=== PATIENT | female | born 1965 | race Caucasian/White ===

== ENCOUNTER → 2020-11-28 13:25 | Outpatient (CLI) | payer OTHER, MEDICAID, SELFPAY ==
[2020-11-28 13:55] LABS: Add Manual Diff / Slide Review NO; Basophils Absolute Auto 100 /uL (0-100); Eosinophils Absolute Auto 100 /uL (0-450); Eosinophils Percent Auto 2.4 % (2-4); Hematocrit 42.1 % (36-46); Hemoglobin 13.9 g/dL (12.0-16.0); Lymphocytes Absolute Auto 1900 /uL (1100-4500); Lymphocytes Percent Auto 31.7 % (25-40); Mean Corpuscular HGB Conc 33.1 % (30-36); Mean Corpuscular Hemoglobin 28.8 PG (26-34); Mean Corpuscular Volume 87.2 fL (80-100); Monocytes Absolute Auto 400 /uL (0-900); Monocytes Percent Auto 5.8 % (3-14); Neutrophils Absolute Auto 3600 /uL (1500-7000); Neutrophils Percent Auto 59.1 % (50-75); Platelet Count 228 X10^3/uL (150-400); Red Blood Cell Count 4.83 X10^6/uL (4.0-5.2); Red Cell Distribution Width 14.9 % (11.6-14.8); White Blood Cell Count 6.1 X10^3/uL (4.5-11.0)
[2020-11-28 14:29] LABS: Alanine Aminotransferase 21 IU/L (<35); Albumin 4.3 g/dL (3.5-5.0); Albumin Globulin Ratio 1.6 (1.0-2.8); Alkaline Phosphatase 58 U/L (38-126); Aspartate Aminotransferase 26 IU/L (14-36); BUN Creatinine Ratio 15.5 (6-22); Bilirubin Total 0.9 mg/dL (0.2-1.3); Blood Urea Nitrogen 13 mg/dL (7-17); Calcium 9.5 mg/dL (8.4-10.2); Carbon Dioxide 24 mmol/L (22-32); Chloride 107 mmol/L (98-107); Estimated Glomerular Filt Rate > 60.0 mL/min (>60); Globulin 2.7 g/dL (1.7-4.1); Glucose 90 mg/dL (70-100); HEMOLYSIS < 15 (0-50); Sodium 139 mmol/L (137-145)
[2020-11-28 14:58] LABS: TSH w/ Reflex to FT4 3.11 uIU/mL (0.47-4.68)
== END ==
PROVIDERS: PCP Registered Nurse; Referring Provider Registered Nurse; Visit Provider Registered Nurse
DX: Z00.00 Encounter for general adult medical examination without abnormal findings (principal); D64.9 Anemia, unspecified
CPT/HCPCS: 36415; 80053; 84443; 85025

== ENCOUNTER → 2020-12-01 10:39 | Outpatient (CLI) | payer OTHER, MEDICAID, SELFPAY ==
[2020-12-04 12:22] LABS: Fecal Immunochemical Test Negative (Negative)
== END ==
PROVIDERS: PCP Registered Nurse; Referring Provider Registered Nurse; Visit Provider Registered Nurse
DX: Z12.11 Encounter for screening for malignant neoplasm of colon (principal)
CPT/HCPCS: 82274

== ENCOUNTER → 2021-06-25 16:14 | Outpatient (CLI) | payer OTHER, MEDICAID, SELFPAY ==
[2021-06-25 19:19] LABS: COVID19 -Nasal RAPID Negative (Negative)
== END ==
PROVIDERS: Obstetrics & Gynecology; PCP Registered Nurse; Visit Provider Family Medicine Sleep Medicine
DX: Z01.812 Encounter for preprocedural laboratory examination (principal); Z20.822 Contact with and (suspected) exposure to COVID-19
CPT/HCPCS: 87635; C9803

== ENCOUNTER 2021-06-26 12:11 | Day surgery (SDC) | payer OTHER, MEDICAID, SELFPAY ==
[2021-06-22 08:11] VITALS: BMI 27.1
[2021-06-26] VITALS (15 sets, daily range): BP systolic 93–138; BP diastolic 55–92; PULSE 52–89; RESP 12–20; TEMP 35.9–37.1; O2SAT 96–100; BMI 27.1
--- NOTE | 2021-06-26 | PATH_ITS ---
[facility] Accession Number: [id number] . 01 Material submitted: . uterus - CERVIX AND UTERUS . 02 Diagnosis: A. Uterus and Cervix, Hysterectomy: Cervix with parakeratosis consistent with features of prolapse-type changes, benign Nabothian cysts, inflammation, squamous metaplasia, and reactive changes. Weakly proliferative endometrium. Myometrium within normal limits. No evidence of endometrioid intraepithelial neoplasia, dysplasia, or malignancy. [facility] 07/02/2021 1623 Local . 02 Electronically signed: . Portia Delong MD, Pathologist NPI- [id number] . 01 Gross description: . The specimen is received in formalin, labeled with the patient's name and cervix and uterus, is composed of a hysterectomy specimen which is received in two fragments. One fragment is composed of the uterus, and the second fragment is composed of cervix and attached tissue. Both fragments together weigh 229 grams. The fragment of uterus measures 6.0 cm from superior to inferior, 7.0 cm from cornu to cornu, and 5.5 cm anterior to posterior. The fragment with the cervix measures 8.0 cm from the cervix to the proximal end. The cervix measures 4.0 x 4.5 cm. The ectocervix is esipnosa-white, glistening, and the mucosal surface is uneven. The cervical os measures 1.0 x 0.5 cm. Bivalving reveals an endocervical canal which measures 1.5 x 0.5 cm. It is espinosa-white and smooth. Multiple mucous-filled cysts are identified ranging from 0.4 to 0.9 cm. The supracervical possible lower uterine segment cavity measures 2.0 x 0.2 cm. It is espinosa-pink and smooth. Discrete lesions are not identified. The fragment which shows the uterus has a espinosa-brown smooth serosal surface. Fallopian tubes are not identified. Bivalving reveals a 2.0 x 0.5 cm espinosa-pink endometrial cavity. Discrete lesions are not identified. The myometrium shows a espinosa-white trabeculated appearance with a 2.0 cm wall thickness. Sectioning reveals no discrete lesions. Ems Driver sections are submitted as follows: . A1-A2 - Cervix. A3 - Possible lower uterine segment. A4-A6 - Endomyometrium. ([id number]) /MRV 06/28/2021 1344 Local . 02 Pathologist provided ICD-10: N81.4 . 02 CPT . 392424 Specimen Comment: A courtesy copy of this report has been sent to [phone] Performed at: 01 [facility] [address] [place] [address] [id number] MD Rory Evans MD Phone: [phone] Performed at: 02 [facility] [id number] [place] [address] [id number] MD Melida Williamson MD Phone: [phone]
--- NOTE | 2021-06-26 11:26 | PM.GYNHP.1 ---
History of Present Illness History of Present Illness Narrative: Melida Anderson is a 56 year old female admitted for total vaginal hysterectomy, anterior and posterior repair, sacrospinous ligament fixation for partial uterovaginal prolapse [facility] Medical History (Updated 06/26/21 @ 11:27 by Mandie Khan MD) Adult general medical exam Amniotic fluid embolism (~12/22/98) Anemia, unspecified Chicken pox (~1992) History of Mohs micrographic surgery for skin cancer (02/12/21) Malaria (~1984) Phlebitis Preoperative exam for gynecologic surgery Prolapsed uterus Screening for breast cancer Screening for malignant neoplasm of colon Surgical History (Updated 12/27/20 @ 13:41 by Leida Trammell) Anesthesia History of appendectomy (~1984) History of dilatation and curettage (~1998) History of tonsillectomy (~1974) History of varicose vein ligation (~2006) Family History (Updated 12/27/20 @ 13:45 by Leida Trammell) Mother Pancreatic cancer Grandfather No problems noted. Grandmother COPD (chronic obstructive pulmonary disease) Grandfather Cirrhosis Grandmother History of heart disease Social History household members: family Smoking Status: Never smoker Meds Home Medications and Allergies Home Medications Medication Instructions Recorded Confirmed Type OTC progestin cream TOPICAL DAILY 02/14/21 06/25/21 History Allergies Allergy/AdvReac Type Severity Reaction Status Date / Time No Known Drug Allergies Allergy Verified 06/26/21 12:18 Exam Narrative Exam Narrative: Chief Complaint: Preoperative exam Preoperative diagnosis:? Uterovaginal prolapse Planned procedure:? Total vaginal hysterectomy with anterior and posterior repair and sacrospinous ligament fixation History of present illness:?Patient is a 56-year-old para 3 who has been having increasing symptoms from prolapse.? She has to shift on the toilet to urinate sometimes.? She does not describe pain but just discomfort with the feeling that she has a bulge coming out of her vagina daily now.? She has no change in bowel movements.? She is not sexually active.? She has no hot flashes or night sweats.? Patient was found on physical exam to have uterovaginal prolapse with the cervix coming out of the hymen, urethra well supported, cystocele and small rectocele.? Patient was given all options for treatment and decided to proceed with hysterectomy with anterior and posterior repair with sacrospinous ligament fixation. On physical exam:? HEENT exam within normal limits.? Lungs are clear to auscultation percussion.? Heart is regular rate and rhythm no S3-S4 murmurs.? The patient's abdomen is soft, nontender with no palpable organomegaly.? External genitalia appear normal.?Speculum exam reveals? a enlarged cervix with the anterior lip significantly prominent verses the posterior lip of the cervix.? There also large Nambothian cysts.? There is significant vaginal wall prolapse.? The urethra it appears to be well supported. The uterus is anteverted, mobile, nontender.? The uterus itself does not palpate significantly enlarged.? No adnexal masses or tenderness.? With Valsalva the cervix prolapses out of the hymen.? Rectal exam reveals a small rectocele. Consent form was reviewed with the patient.? Risk of damage to bladder, bowel, ureters that could require additional surgery to repair.? Small risk of bleeding.? Patient is okay with blood transfusion if necessary to save her life.? 10% risk of infection that might require additional antibiotics after procedure.? 5% risk of scar tissue that could cause as pain that might be long-term.? Reaction to medication or anesthesia.? Consent form signed and questions answered. Patient is aware that she will have vaginal packing and a Killian in after the end of the case.? She will stay overnight and then have the catheter and packing removed.? She is aware of a small chance of needing to have a Killian replaced or be taught self catheterization if she is unable to urinate after the procedure.? The catheter would stay in for 2 days after and she would again be of value to make sure she could urinate.? Patient is aware she should not lift over 20 lb or put anything in her vagina for 6 weeks. Assessment & Plan Assessment and plan (1) Preoperative exam for gynecologic surgery: Status: Acute (2) Prolapsed uterus: Status: Acute Assessment & Plan narrative: Patient with partial uterovaginal prolapse for anterior and posterior repair with sacrospinous ligament fixation COVID-19 COVID-19 status: Negative Result date/Date tested (Pos, Neg/Pending): 06/25/21 Time Spent With Patient Time with patient: less than 30 minutes Critical Care time: I spent a total of [] minutes of critical care time on this patient's care today; this time is exclusive of procedural time.
--- NOTE | 2021-06-26 13:42 | PM.PREOP ---
Pre-operative Note COVID-19 COVID-19 status: Negative Result date/Date tested (Pos, Neg/Pending): 06/25/21 Criteria for continued procedure: Expected advancement of disease process Interval Note History & Physical reviewed/Exam performed by Physician: Yes Changes to H&P: No
[2021-06-26] MEDS: LACTATED RINGERS 1,000 ML 42 ML IV (14:00)
[2021-06-26] MEDS: CEFAZOLIN 2 GM/20 ML SYRINGE IV (14:52)
--- NOTE | 2021-06-26 15:06 | SUR.OPER ---
Lithotomy on padded OR bed, head on pillow, arms secured on padded arm boards at <90 degrees abduction. Legs secured in padded yellow fins stirrups.
[2021-06-26] MEDS: LACTATED RINGERS 1,000 ML 100 ML IV ×2 (15:19→18:49)
[2021-06-26] MEDS: BUPIVACAINE 0.5% (PF) 30 ML, EPINEPHrine 0.15 MG INJ (15:32)
--- NOTE | 2021-06-26 17:09 | PM.OP.1 ---
Operative Date/Time/Diagnoses Date of procedure: 06/26/21 Time of procedure: 17:09 Pre-op diagnosis: Symptomatic uterovaginal prolapse Post-op diagnosis: same Procedure & Clinicians Procedure: Total vaginal hysterectomy with anterior and posterior repair and bilateral sacrospinous ligament fixation with perineoplasty Same procedure as scheduled: Yes Indications: Symptomatic uterovaginal prolapse Surgeon: Mandie Khan Certifed Refrigeration Operator: Mirna rCane Click Yes if Unassisted: No Anesthesia Type: General Operative Notes Findings: Enlarged uterus with normal appearing bilateral ovaries and tubes. First-degree cystocele, second-degree rectocele with gaping introitus Closure Type: primary Specimen(s): other (Uterus) Applied: catheter (Killian) and other (Vaginal packing) Estimated Blood Loss (mL): 400 Blood products transfused: none Procedure in detail: Patient was brought to the operating room where she was placed in yellowfin stirrups and prepped and draped in the usual sterile fashion. A check system was reviewed prior to the beginning of the case. Pulsatile stockings were in place and functional throughout the case. Warming was in place. 2 g of Ancef were in prior to beginning of the case. A Killian catheter was placed. 0.5% Marcaine with epinephrine was injected around the cervix. A single-tooth tenaculum was placed on the posterior lip of the cervix and a colpotomy incision was made. The uterosacral ligaments were clamped, cut, and ligated with 0 Vicryl suture which was used throughout the rest the case unless otherwise indicated. A scalpel was used to circumscribe the cervix and the bladder pushed superiorly. The bladder pillars were clamped cut and ligated. Keeping the bladder pushed superiorly sequential bites were taken of the cardinal and broad ligaments with the LigaSure . Anterior colpotomy incision was made and the bladder held away from the uterus. The rest of the attachments of the uterus including the broad ligament and the utero-ovarian ligaments were clamped and ligated. The uterus was removed intact. Bleeding was controlled with [id number] 0 Vicryl suture. Adequate hemostasis was noted. The perineum was closed with a pursestring suture of 0 Vicryl suture. Dilute solution of 1% lidocaine with epinephrine was injected over this cystocele. An incision was made over the cystocele and the incision dissected laterally. Plicating sutures were made over the cystocele. A small amount of the vaginal excessive tissue was removed with scissors. The incision was closed with 2-0 Vicryl suture. The vaginal cuff was closed with [id number] sutures of 0 Vicryl suture. Next a wedge shaped tissue was taken out of the posterior vaginal opening. The area over the rectocele was injected with a dilute solution of 1% lidocaine with epinephrine. An incision was made over the rectocele and enterocele with the scalpel. The dissection was undertaken laterally. Prolene suture with the Capio passer was placed through the uterosacral ligament on the right side and sutured to the underside of the vaginal cuff. Same procedure was performed on the left side. A finger in the rectum did not reveal any suture in the rectum. 0 Vicryl suture was used to plicate over the rectocele. A finger was placed in the rectum to be sure there were no sutures placed through the rectal mucosa. The uterosacral sutures were tightened down and the vaginal incision was closed with 2-0 Vicryl suture. The perineal body was built up with interrupted 0 Vicryl sutures. The skin was closed with the 2-0 Vicryl suture. Vaginal packing was placed in the vagina and the Killian left in place. Counts of instruments and sponges were correct. The patient went to recovery room in good condition. Complications: none Post-operative Condition: stable Disposition: Acute Care
--- NOTE | 2021-06-26 18:11 | SUR.PHASEI ---
Report called to NAVDEEP RN. Opportunity for questions give. Return phone number at time of report [phone]. Pt being transferred to Rm 216. Pt updated on plan of care and is agreeable.
[2021-06-26] MEDS: KETOROLAC 30 MG/ML VIAL IV (18:48)
[2021-06-26] MEDS: ONDANSETRON 4 MG/2 ML INJ IV (20:22)
[2021-06-26] MEDS: DOCUSATE 100 MG CAPSULE 200 MG PO (21:17)
[2021-06-27] MEDS: KETOROLAC 30 MG/ML VIAL IV ×3 (00:13→12:47)
[2021-06-27] MEDS: ONDANSETRON 4 MG/2 ML INJ IV ×2 (01:58→08:33)
[2021-06-27 04:00] VITALS: BP 125/70; PULSE 89; RESP 14; TEMP 36.7; O2SAT 96
[2021-06-27] MEDS: LACTATED RINGERS 1,000 ML 100 ML IV (05:14)
[2021-06-27 06:00] LABS: Add Manual Diff / Slide Review NO; Basophils Absolute Auto 0 /uL (0-100); Basophils Percent Auto 0.1 % (0-2); Eosinophils Absolute Auto 0 /uL (0-450); Hematocrit 30.7 % (36-46); Hemoglobin 9.9 g/dL (12.0-16.0); Lymphocytes Absolute Auto 1000 /uL (1100-4500); Mean Corpuscular HGB Conc 32.3 % (30-36); Mean Corpuscular Hemoglobin 24.9 PG (26-34); Monocytes Absolute Auto 500 /uL (0-900); Monocytes Percent Auto 4.3 % (3-14); Neutrophils Absolute Auto 10500 /uL (1500-7000); Neutrophils Percent Auto 87.6 % (50-75); Platelet Count 200 X10^3/uL (150-400); Red Blood Cell Count 3.99 X10^6/uL (4.0-5.2); Red Cell Distribution Width 15.6 % (11.6-14.8)
[2021-06-27] MEDS: METOCLOPRAMIDE 10 MG/2 ML INJ IV (06:46)
[2021-06-27] MEDS: OXYCODONE IR 5 MG TABLET PO (06:46)
--- NOTE | 2021-06-27 07:53 | PM.PN.1 ---
Subjective Subjective Date Patient Seen: 06/27/21 Time Patient Seen: 07:53 Interval history: Patient is to continue to have waves of nausea but pain is under control. Exam Vital Signs (past 8 hours): - 06/27/21 04:00 Temperature 98.1 F Pulse Rate 89 Respiratory Rate 14 Blood Pressure 125/70 Pulse Oximetry 96 Fraction of Inspired Oxygen 21 Oxygen Delivery Method Room Air Oxygen Flow Rate 0 Narrative Exam Narrative: Abdomen is soft, nontender. Killian catheter was removed. Vaginal packing was removed and was not saturated with blood. Extremities without edema and nontender Objective Labs Result Diagrams: 06/27/21 05:34 Labs: Laboratory Results - last 24 hr 06/27/21 05:34 WBC 12.0 H RBC 3.99 L Hgb 9.9 L Hct 30.7 L MCV 77.0 L MCH 24.9 L MCHC 32.3 RDW 15.6 H Plt Count 200 Neut % (Auto) 87.6 H Lymph % (Auto) 8.0 L [place] % (Auto) 4.3 Eos % (Auto) 0.0 L Baso % (Auto) 0.1 Neut # (Auto) 09621 H Lymph # (Auto) 1000 L [place] # (Auto) 500 Eos # (Auto) 0 Baso # (Auto) 0 PFSH Medical History (Updated 06/27/21 @ 07:54 by Mandie Khan MD) Adult general medical exam Amniotic fluid embolism (~12/22/98) Anemia, unspecified Chicken pox (~1992) History of Mohs micrographic surgery for skin cancer (02/12/21) Malaria (~1984) Phlebitis Prolapsed uterus Screening for breast cancer Screening for malignant neoplasm of colon Surgical History (Updated 06/26/21 @ 17:06 by Mandie Khan MD) Anesthesia History of appendectomy (~1984) History of dilatation and curettage (~1998) History of tonsillectomy (~1974) History of varicose vein ligation (~2006) Family History (Updated 12/27/20 @ 13:45 by Leida Trammell) Mother Pancreatic cancer Grandfather No problems noted. Grandmother COPD (chronic obstructive pulmonary disease) Grandfather Cirrhosis Grandmother History of heart disease Social History household members: family Smoking Status: Never smoker alcohol intake: current Assessment & Plan Assessment and plan (1) Status post vaginal hysterectomy: Status: Acute (2) H/O vaginal surgery: Problem details: Anterior and posterior repair with bilateral sacrospinous ligament fixation Status: Acute Assessment & Plan narrative: Killian catheter was removed. Will check for postvoid residual. Will discharge later today if tolerating regular diet and ambulatory. Time Spent With Patient Time with patient: less than 30 minutes Critical Care time: I spent a total of [] minutes of critical care time on this patient's care today; this time is exclusive of procedural time.
[2021-06-27 07:55] VITALS: O2SAT 98
[2021-06-27] MEDS: ACETAMINOPHEN 325 MG TABLET 650 MG PO (08:32)
[2021-06-27 09:12] VITALS: BP 122/73; PULSE 83; RESP 16; TEMP 37.4; O2SAT 97
[2021-06-27 12:00] VITALS: BP 128/76; PULSE 83; RESP 16; TEMP 37.3; O2SAT 100
--- NOTE | 2021-06-27 13:03 | PC.NURSE ---
Addendum entered by Emily Laughlin R.N. 06/27/21 16:01: Pt received discharge instructions w/understanding SL D/C'd intact. Pt escorted by staff via W/C to waiting vehicle. Stable post op course. Original Note: Pt A/O Lungs clear, SpO2 98% RS IVF of LR infusing into the LFA as per orders. Med w/ zofran and tylenol early in shift w/minimal relief. F/C D/C'd early in shift, voided QS Call light w/in reach, pt calls appropriately for needs.
--- NOTE | 2021-06-27 13:12 | PM.DS.1 ---
History of Present Illness History of Present Illness Date Patient Seen: 06/27/21 Time Patient Seen: 13:12 Chief complaint: *OPB* Narrative: Patient underwent a total vaginal hysterectomy with anterior and posterior repair and sacrospinous ligament fixation on 06/26/2021. Patient passed her bladder trial. She has had issues with nausea that are somewhat better at this time. Patient has a headache in the back of her head neck now. Discharge Providers Provider Discharge Date: 06/27/21 Primary care physician: BELINDA Paige Discharge provider: Mandie Khan MD Summary Status at Discharge Functional status at discharge: independent ambulation Overall status at discharge: patient is progressing back to baseline Time Spent with Patient Time spent: Less than 30 minutes Exam Vital Signs (past 8 hours): - 06/27/21 07:55 06/27/21 09:12 06/27/21 12:00 Temperature 99.4 F 99.1 F Pulse Rate 83 83 Respiratory Rate 16 16 Blood Pressure 122/73 128/76 Pulse Oximetry 98 97 100 Fraction of Inspired Oxygen 21 Oxygen Delivery Method Room Air Oxygen Flow Rate 0 Narrative Exam Narrative: Abdomen is soft, nontender. Minimal vaginal bleeding. Extremities without edema and nontender. Objective Labs Result Diagrams: 06/27/21 05:34 Labs: Laboratory Results - last 24 hr 06/27/21 05:34 WBC 12.0 H RBC 3.99 L Hgb 9.9 L Hct 30.7 L MCV 77.0 L MCH 24.9 L MCHC 32.3 RDW 15.6 H Plt Count 200 Neut % (Auto) 87.6 H Lymph % (Auto) 8.0 L [place] % (Auto) 4.3 Eos % (Auto) 0.0 L Baso % (Auto) 0.1 Neut # (Auto) 32350 H Lymph # (Auto) 1000 L [place] # (Auto) 500 Eos # (Auto) 0 Baso # (Auto) 0 PFSH Medical History (Updated 06/27/21 @ 07:54 by Mandie Khan MD) Adult general medical exam Amniotic fluid embolism (~12/22/98) Anemia, unspecified Chicken pox (~1992) History of Mohs micrographic surgery for skin cancer (02/12/21) Malaria (~1984) Phlebitis Prolapsed uterus Screening for breast cancer Screening for malignant neoplasm of colon Surgical History (Updated 06/26/21 @ 17:06 by Mandie Khan MD) Anesthesia History of appendectomy (~1984) History of dilatation and curettage (~1998) History of tonsillectomy (~1974) History of varicose vein ligation (~2006) Family History (Updated 12/27/20 @ 13:45 by Leida Trammell) Mother Pancreatic cancer Grandfather No problems noted. Grandmother COPD (chronic obstructive pulmonary disease) Grandfather Cirrhosis Grandmother History of heart disease Social History household members: family Smoking Status: Never smoker alcohol intake: current Discharge Assessment & Plan Assessment and Plan Assessment: Status post vaginal hysterectomy with anterior and posterior repair and sacrospinous ligament fixation for complaints uterovaginal prolapse. Patient passed her bladder trial this a.m.. We are waiting for confirmation that her nausea has improved enough for her to be discharged. Plan of Treatment: She will be discharged home to be followed up in 2 weeks. Routine precautions reviewed with the patient. Discharge Plan Discharge Plan Patient Disposition: Home Discharge orders & Medications Discharge Orders: Discharge (Order); Ordered 06/27/21 Ordered By: Mandie Khan Prescriptions: New oxycodone 5 mg Tablet 5 mg PO Q4HR PRN (Reason: Pain, Moderate (4-6)) Qty: 20 0RF ondansetron 4 mg tablet,disintegrating 4 mg PO Q6H PRN (Reason: nausea and vomiting) Qty: 10 2RF Discontinued OTC progestin cream topical DAILY 0RF Follow up/Referrals: Mandie Khan MD [Physician] - 2 Weeks Janae Asencio ARNP [Primary Care Provider] - Diet/Activity/Treatments Diet: Regular Activity: Nothing in vagina or lifting over 20 lb for 6 weeks Skin/Wound/Dressing Care Report to your healthcare provider any signs of infection, such as:: chills, fever and increased pain Visit Report/Discharge Packet Instructions: DI for Hysterectomy Stand Alone Forms: Surgery Discharge Discharge Data Primary Care Provider: Janae Asencio Attending Provider: Mandie Khan
== END 2021-06-27 16:00 | disposition home or self-care (01) ==
LOC: OR 12:12 → AC 12:13
PROVIDERS: PCP Registered Nurse; Referring Provider Specialist; Visit Provider Specialist
PROC: (CPT 58260; principal; 2021-06-26 13:30)
PROC: (CPT 58260; 2021-06-26 13:30)
DX: N81.2 Incomplete uterovaginal prolapse (principal); N88.8 Other specified noninflammatory disorders of cervix uteri
CPT/HCPCS: 58260; 57260; 36415; 85025; 94760; J0171; J0690; J1100; J1885; J2250; J2405; J2704; J2765; J3010

== ENCOUNTER → 2022-08-29 09:16 | Outpatient (CLI) | payer OTHER, MEDICAID, SELFPAY ==
[2021-06-26 12:18] VITALS: BMI 27.1
[2022-08-29 12:20] LABS: Appearance Urine UA CLEAR; Bilirubin Urine UA NEGATIVE (NEGATIVE); Color Urine UA YELLOW; Glucose Urine UA NEGATIVE (Negative); Ketones Urine UA NEGATIVE (NEGATIVE); Leukocyte Esterase Urine UA 1+ (NEGATIVE); Nitrite Urine UA NEGATIVE (Negative); Occult Blood Urine UA NEGATIVE (Negative); Protein Urine UA NEGATIVE (Negative); Specific Gravity Urine UA <=1.005 (1.000-1.035); Urobilinogen Urine UA 0.2 E.U./dL (0.2)
[2022-08-29 12:24] LABS: pH Urine UA 6.5 (4.5-8.0)
[2022-08-29 12:30] LABS: Bacteria Urine Many (>30); Culture Indicated Urine Specimen Cultured; RBC Urine None Seen (0-5/HPF); Squamous Epithelial Cell Urine 10-30 /HPF (0-5/HPF); WBC Urine 5-10/HPF (0-5/HPF)
== END ==
PROVIDERS: Referring Provider Specialist; Visit Provider Specialist
DX: R33.9 Retention of urine, unspecified (principal)
CPT/HCPCS: 81001; 87077; 87086; 87186

== ENCOUNTER → 2024-03-11 13:25 | Outpatient (CLI) | payer BC, SELFPAY ==
[2021-06-26 12:18] VITALS: BMI 27.1
--- NOTE | 2024-03-11 13:26 | DI.MG.S_ITS ---
BILATERAL DIGITAL DIAGNOSTIC MAMMOGRAM 3D/2D: 03/11/2024 CLINICAL: Right breast mass/redness. Comparison is made to exams dated: 06/22/2019 mammogram and 07/27/2015 mammogram - Outside facility. The breasts are heterogeneously dense, which may obscure small masses (category c / 51-75% glandular tissue). There is an oval mass in the right breast at 12 o'clock anterior depth. No other significant masses, calcifications, or other findings are seen in either breast. Mild thickening in the right infra-areolar region. IMPRESSION: INCOMPLETE: NEED ADDITIONAL IMAGING EVALUATION The oval mass in the right breast most likely is a cyst and is indeterminate. A targeted ultrasound is recommended and will immediately follow. Based on the Tyrer Cuzick model (a risk assessment model) the patient's lifetime risk is 12.7% and her 10 year risk is 4.4%. According to the ACR, ACS, and NCCN guidelines, an annual breast MRI exam along with mammogram is recommended if the patient's lifetime risk is 20% or greater. This exam was interpreted at Station ID: [id number]. NOTE: For mammograms, a report in lay terms will be sent to the patient. Approximately 15% of breast malignancies will not be visualized mammographically. In the management of a palpable breast mass, a negative mammogram must not discourage biopsy of a clinically suspicious lesion. Electronically Signed By: Gianni Stevens M.D. [facility]/:03/11/2024 14:28:51 letter sent: Additional Imaging Needed ACR BI-RADS Category 0: Incomplete: Need Additional Imaging Evaluation
--- NOTE | 2024-03-11 13:26 | DI.US.S_ITS ---
LIMITED ULTRASOUND OF RIGHT BREAST AND AXILLA: 03/11/2024 CLINICAL: Palpable right breast lump and intermittent focal pain. Comparison is made to exams dated: 03/11/2024 mammogram - [facility], 06/22/2019 mammogram, 06/22/2019 ultrasound, 02/08/2016 ultrasound, 08/01/2015 ultrasound, and 07/27/2015 mammogram - Outside facility. Color flow and real-time ultrasound of the right breast 3 o'clock, 9-12 o'clock, retroareolar, and axilla regions were performed. Flores scale images of the real-time examination were reviewed. There is a benign 3.6 cm x 2.8 cm x 2.4 cm oval simple cyst in the right breast at 12 o'clock in the retroareolar region. This oval simple cyst is anechoic. This correlates with mammography findings. Color flow imaging demonstrates that there is no vascularity present. Several additional simple cysts. No dilated retroareolar ducts. No fluid collection. Mild skin thickening in the periareolar region. Prominent right axillary lymph node. Cortical thickness is at the upper limits of normal. Preserved fatty hilum. IMPRESSION: BENIGN There is no sonographic evidence of malignancy. Mild skin thickening in the periareolar region. This is also appreciated on exam. No fluid collection or dilated ducts. Suspect the sequelae of mastitis. Prominent right axillary lymph node is likely reactive. Several benign cysts are again seen. Largest measuring 3.6 cm in the 12:00 retroareolar region. Exam findings were conveyed to the patient. Patient is advised to monitor for significant change. Clinical follow-up is recommend to ensure resolution of the skin thickening. A 1 year screening mammogram is recommended. This exam was interpreted at Station ID: [id number]. Electronically Signed By: Gianni Stevens M.D. [facility]/:03/11/2024 15:40:08 letter sent: Clinical Evaluation ACR BI-RADS Category 2: Benign
== END ==
PROVIDERS: Referring Provider Specialist; Visit Provider Specialist
DX: N60.01 Solitary cyst of right breast (principal); N63.12 Unspecified lump in the right breast, upper inner quadrant; R92.333 Mammographic heterogeneous density, bilateral breasts
CPT/HCPCS: 76642; 77066; G0279

== ENCOUNTER → 2024-07-05 13:27 | Outpatient (CLI) | payer BC, SELFPAY ==
[2021-06-26 12:18] VITALS: BMI 27.1
--- NOTE | 2024-07-05 13:31 | DI.MG.S_ITS ---
MM diagnostic mammo unilat RT, US breast RT limited: 07/05/2024 BI-RADS: 5 CLINICAL: 59-year old female for right diagnostic mammogram and right diagnostic breast ultrasound. The patient presents with right breast swelling, redness, and nipple inversion for the past 5 months. She completed antibiotics for presumed mastitis in January 2024. Tyrer-Cuzick lifetime risk of 10.9%. No personal or first-degree family history of breast cancer. PRIOR EXAMS 03/11/2024, 06/22/2019, 02/08/2016. MAMMOGRAPHY TECHNIQUE: 2D and 3D (tomosynthesis) digital mammographic views obtained, with additional images as needed for full coverage. Current study was also evaluated with a Computer Aided Detection (CAD) system. ULTRASOUND TECHNIQUE Right Axilla. Real-time fox scale and color doppler imaging of the area of clinical interest was performed with image documentation. TARGETED Right Breast Ultrasound: Real-time ultrasound exam was performed focused to area of clinical and/or imaging concern. DENSITY Right: C. The breasts are heterogeneously dense, which may obscure small masses. MAMMOGRAPHY FINDINGS Right (finding-1): Upper Outer at 11:00, Middle depth: There are new highly suspicious fine pleomorphic calcifications in segmental distribution. Right (finding-2): Upper at 12:00, Middle depth: There is a circumscribed, oval mass present. Right (finding-3): Upper Outer at 11:00, Anterior depth: There is a circumscribed, oval mass present. Right (finding-4): Upper Inner at 2:00, Middle depth: There is an area of architectural distortion from post-surgical scarring. Right (finding-5): MLO only, Axilla: There is a suspicious lymph node present. Right: Inner Hemisphere: There is skin thickening present. Nipple is retracted. This has increased compared to 03/11/2024. ULTRASOUND FINDINGS Right (finding-1): Upper Outer at 11:00, 6 cm from nipple, measuring 1.9 x 2.4 x 1.4 cm: Correlating with findings on mammogram there is an irregularly shaped, spiculated mass. Doppler shows multi-vessel vascularity. Right (finding-5): Axilla, measuring 0.5 x 0.9 cm: Correlating with findings on mammogram there is a lymph node with eccentric cortical thickening present. Right (finding-2): Upper at 12:00, measuring 1.5 x 1.2 x 0.9 cm: Correlating with findings on mammogram there is a simple anechoic cyst showing posterior acoustic enhancement. Doppler shows no vascularity. Right (finding-3): Upper at 12:00, measuring 2 x 1.4 x 1 cm: Correlating with findings on mammogram there is a simple anechoic cyst showing posterior acoustic enhancement. Doppler shows no vascularity. Right (finding-4): Upper Inner at 2:00, 4 cm from nipple: No suspicious sonographic finding present. IMPRESSION: Right (Mass): Upper Outer at 11:00, 6 cm from nipple, measuring 1.9 x 2.4 x 1.4 cm * Highly Suggestive of Malignancy. Right (Lymph Node): Axilla, measuring 0.5 x 0.9 cm * Suspicious findings with likelihood of malignancy. RECOMMENDATIONS Right: Upper Outer at 11:00, 6 cm from nipple * Ultrasound-guided biopsy for further evaluation. Right: Axilla * Ultrasound-guided biopsy for further evaluation. COMMENTS: Findings and recommendations were discussed with the patient during today's examination by Dr. Henry prior to the patient leaving the facility. The patient will be contacted to schedule the ultrasound guided biopsies. OVERALL ASSESSMENT CATEGORY BI-RADS-5: Highly Suggestive of Malignancy. ELECTRONICALLY SIGNED: Ene Vasquez M.D. on 07/06/2024 at 12:56:51 PM PT Interpreting Station ID: [id number]
== END ==
PROVIDERS: Referring Provider Obstetrics & Gynecology; Visit Provider Obstetrics & Gynecology
DX: N63.11 Unspecified lump in the right breast, upper outer quadrant (principal); N63.41 Unspecified lump in right breast, subareolar; R59.0 Localized enlarged lymph nodes; N60.01 Solitary cyst of right breast; R92.333 Mammographic heterogeneous density, bilateral breasts
CPT/HCPCS: 76642; 77065; G0279

== ENCOUNTER → 2024-07-07 08:40 | Outpatient (CLI) | payer BC, SELFPAY ==
[2021-06-26 12:18] VITALS: BMI 27.1
--- NOTE | 2024-07-07 10:57 | DI.MRI.S_ITS ---
MR breast BI wo/w con: 07/07/2024. BI-RADS: 5 CLINICAL: 59-year old female for bilateral diagnostic breast MRI. Patient presented on 07/05/2024 for diagnostic mammogram and ultrasound for right breast swelling, erythema and nipple inversion for the past 5 months. No personal or first-degree family history of breast cancer. PRIOR EXAMS 03/11/2024, 07/05/2024. MRI TECHNIQUE Bilateral breast MRI was performed on a 1.5 Codie magnet using a dedicated breast coil with mild compression. Axial T1 and T2 STIR sequences were obtained. Dynamic contrast enhanced VIBRANT fat-suppressed sequences were obtained. Delayed sagittal high resolution or sagittal reconstructed isotropic sequence was also obtained. Subtraction images and maximum intensity projection images were obtained. The study was evaluated using [employer] software. IV Contrast: 20 ml ProHance. FIBROGLANDULAR TISSUE Bilateral: C. Heterogeneous fibroglandular tissue. BACKGROUND PARENCHYMAL ENHANCEMENT Bilateral: Moderate symmetrical background parenchymal enhancement. BREAST FINDINGS Right: Axilla: There are two enlarged level 1 axillary lymph nodes, one of which likely corresponds to the suspicious lymph node with eccentric cortical thickening seen on diagnostic mammogram and ultrasound 07/05/2024. The largest level 1 axillary lymph node measures 1.7 x 1.1 cm (series 12 image 106). There are also two rounded, abnormal appearing level 2 axillary lymph nodes (series 12 image 121). Right: There is clumped non-mass enhancement in diffuse distribution with kinetic enhancement curve showing fast initial phase, washout pattern on delayed phase. Associated features include nipple retraction, nipple invasion, skin thickening, and direct skin invasion. No associated pectoralis muscle invasion, chest wall invasion, or internal mammary lymphadenopathy present. There is tenting of the right pectoralis muscle without definite signs of invasion. Possible dermal lymphatic invasion of the skin is also present with scattered foci of enhancement within skin thickening, not directly related to areas of direct invasion involving the skin of the nipple-areolar complex. The nonmass enhancement involves all four quadrants of the breast, measuring approximately 9 x 7 x 8.4 cm (AP x ML x SI). Left: There is no suspicious finding with benign findings noted. Bilateral: There are multiple cysts. CHEST FINDINGS T1 hypointense, STIR hyperintense area of enhancement within the sternum is indeterminate, but concerning for osseous metastasis (series 5 image 92, series 2 image 40, series 3 image 90). Possible enhancing lesion with STIR correlate involving a right anterior rib near the costochondral junction (series 5 image 23). IMPRESSION: Right: Axilla * Suspicious findings with likelihood of malignancy. Right * Highly Suggestive of Malignancy. Left * No evidence of malignancy with benign findings. RECOMMENDATIONS * Chest: Recommend further evaluation of the sternal and right rib findings with PET/CT following the patient's ultrasound guided biopsies. Right: Axilla * Continue with ultrasound guided biopsy of a right axillary lymph node, per the recommendation from 07/05/2024. On the day of the biopsy, pre-procedure ultrasound can be performed to identify the largest, most suspicious lymph node to biopsy given that multiple enlarged level 1 axillary nodes are present. Appointment to be made as soon as possible. Right * Continue with ultrasound guided biopsy of the mass in the right breast at 11:00, 6 cm from the nipple, per the report from 07/05/2024. This mass is included within the area of diffuse nonmass enhancement on MRI. Appointment to be made as soon as possible. Left * Annual screening mammography. OVERALL ASSESSMENT CATEGORY BI-RADS-5: Highly Suggestive of Malignancy. ELECTRONICALLY SIGNED: Ene Vasquez M.D. on 07/09/2024 at 11:11:51 AM PT Interpreting Station ID: [id number]
== END ==
PROVIDERS: Referring Provider Obstetrics & Gynecology; Visit Provider Obstetrics & Gynecology
DX: N63.41 Unspecified lump in right breast, subareolar (principal); N64.59 Other signs and symptoms in breast; R59.0 Localized enlarged lymph nodes
CPT/HCPCS: 77049; A9579

== ENCOUNTER → 2024-07-14 06:57 | Outpatient (CLI) | payer BC, SELFPAY ==
[2021-06-26 12:18] VITALS: BMI 27.1
--- NOTE | 2024-07-14 06:58 | DI.ECHO.S_ITS ---
[facility] : : [id number] : [place] : : [id number] : : Phone: [phone] Echocardiogram Report + + :Name: EFREN PERDOMO Study Date: 07/14/2024 Height: 67 in : :[facility] ReadingLocation: Weight: 170 lb : : Gender: Female BSA: 1.9 m2 : :: 1965 Age: 59 yrs BP: 133/94 mmHg: :Reason For Study: LUMP IN RIGHT BREAST : :Ordering Physician: BINA, : :RON CARDOZA Performed By: Lauren Najera : :Referring: RON CURRAN MD : + + Interpretation Summary pharmaceutical laboratory technician notes: Very technically difficult study. Unable to obtain strain rate imaging due to lack of on axis apical window. Apical views/measurements were taken in an off-axis window and measurements should be viewed as approximate. 1) Normal left ventricular thickness and size with mildly reduced systolic function (EF 45-50%). 2) Normal right ventricular size and function. 3) No significant valvular abnormalities. 4) No prior Echo available for comparison. Procedure: A two-dimensional transthoracic echocardiogram with color flow and Doppler was performed. The study quality was technically difficult. The study quality was technically limited. There is no prior echocardiogram noted for this patient. The patient was in sinus rhythm with heart rates between 52- 68 bpm during the exam. Left Ventricle: The left ventricle is normal in size and wall thickness. The ejection fraction is estimated to be 45-50%. There is mild global hypokinesis of the left ventricle. Diastolic function could not be accurately assessed due to unobtainable data. Right Ventricle: The right ventricle is normal in size and function. Atria: The left atrial size is normal. The right atrium grossly appears normal in size. There is no Doppler evidence for an interatrial shunt. Mitral Valve: The mitral valve leaflets appear to open well. There is no mitral regurgitation noted. Aortic Valve: The aortic valve is trileaflet. The aortic valve opens well. No aortic regurgitation is present. Tricuspid Valve: The tricuspid valve leaflets are thin and pliable. No tricuspid regurgitation. Pulmonary artery pressures cannot be estimated because of the lack of a measurable TR jet velocity. Pulmonic Valve: The pulmonic valve is not well visualized. Great Vessels: The aortic root is normal size. The dimensions of the ascending aorta are normal. The IVC is of normal diameter and collapses greater than 50% with a sniff. This suggests a low right atrial pressure of 3 mm Hg. Pericardium/ Pleura There is no pericardial effusion. There is no pleural effusion. MMode/2D Measurements & Calculations LVIDd: 4.2 cm LVOT diam: 2.1 cm LVIDs: 3.1 cm Ao root diam: 3.5 cm FS: 25.8 % asc Aorta Diam: 3.2 cm EPSS: 0.65 cm Ao Arch Diam (Prox Trans): 2.7 cm IVSd: 0.93 cm LVPWd: 0.83 cm LV joseph. diameter/BSA (cm/m^2): 2.2 LV sys. diameter/BSA (cm/m^2): 1.7 LA dimension: 2.7 cm IVC diam: 0.99 cm RVD1 (basal): 3.9 cm TAPSE: 1.7 cm FELICITY (plan): 3.1 cm2 Doppler Measurements & Calculations MV E max gallo: 44.2 cm/sec MV A max gallo: 42.2 cm/sec MV E/A: 1.0 Med Peak E' Gallo: 5.4 cm/sec E/E' med: 8.3 MV dec time: 0.21 sec Reading Physician:11:10 AM
[2024-07-14 09:00] LABS: Add Manual Diff / Slide Review NO; Basophils Absolute Auto 100 /uL (0-100); Eosinophils Absolute Auto 100 /uL (0-450); Eosinophils Percent Auto 2.6 % (2-4); Hematocrit 46.7 % (36-46); Hemoglobin 15.5 g/dL (12.0-16.0); Lymphocytes Absolute Auto 1600 /uL (1100-4500); Lymphocytes Percent Auto 31.7 % (25-40); Mean Corpuscular HGB Conc 33.3 % (30-36); Mean Corpuscular Hemoglobin 28.6 PG (26-34); Mean Corpuscular Volume 86.1 fL (80-100); Monocytes Absolute Auto 300 /uL (0-900); Monocytes Percent Auto 5.5 % (3-14); Neutrophils Absolute Auto 2900 /uL (1500-7000); Neutrophils Percent Auto 59.2 % (50-75); Platelet Count 216 X10^3/uL (150-400); Red Blood Cell Count 5.42 X10^6/uL (4.0-5.2); Red Cell Distribution Width 14.1 % (11.6-14.8); White Blood Cell Count 4.9 X10^3/uL (4.5-11.0)
[2024-07-14 09:20] LABS: Alanine Aminotransferase 30 IU/L (<35); Albumin 4.4 g/dL (3.5-5.0); Alkaline Phosphatase 80 U/L (38-126); Aspartate Aminotransferase 33 IU/L (14-36); BUN Creatinine Ratio 12.5 (6-22); Bilirubin Total 0.8 mg/dL (0.2-1.3); Blood Urea Nitrogen 11 mg/dL (7-17); Calcium 9.9 mg/dL (8.4-10.2); Carbon Dioxide 24 mmol/L (22-32); Chloride 108 mmol/L (98-107); Estimated Glomerular Filt Rate > 60 mL/min (>60); Globulin 2.2 g/dL (1.7-4.1); Glucose 94 mg/dL (70-100); HEMOLYSIS < 15 (0-50); Potassium 4.9 mmol/L (3.4-5.1); Sodium 141 mmol/L (137-145); Total Protein 6.6 g/dL (6.3-8.2)
[2024-07-14 09:53] LABS: Hepatitis B Surface Antigen NEGATIVE s/c (NEGATIVE)
[2024-07-15 05:10] LABS: Hepatitis B Surf Ab Qualitativ Non Reactive (.)
== END ==
PROVIDERS: Referring Provider Internal Medicine; Visit Provider Internal Medicine
DX: N63.41 Unspecified lump in right breast, subareolar (principal)
CPT/HCPCS: 36415; 80053; 85025; 86706; 87340; 93306

== ENCOUNTER → 2024-08-06 13:51 | Outpatient (CLI) | payer BC, SELFPAY ==
[2021-06-26 12:18] VITALS: BMI 27.1
[2024-08-06 14:58] LABS: Add Manual Diff / Slide Review NO; Basophils Absolute Auto 0 /uL (0-100); Basophils Percent Auto 0.5 % (0-2); Eosinophils Absolute Auto 300 /uL (0-450); Eosinophils Percent Auto 10.2 % (2-4); Hematocrit 42.4 % (36-46); Hemoglobin 14.2 g/dL (12.0-16.0); Lymphocytes Absolute Auto 500 /uL (1100-4500); Lymphocytes Percent Auto 15.1 % (25-40); Mean Corpuscular HGB Conc 33.5 % (30-36); Mean Corpuscular Hemoglobin 28.9 PG (26-34); Mean Corpuscular Volume 86.4 fL (80-100); Monocytes Absolute Auto 200 /uL (0-900); Monocytes Percent Auto 6.6 % (3-14); Neutrophils Absolute Auto 2100 /uL (1500-7000); Neutrophils Percent Auto 67.6 % (50-75); Platelet Count 130 X10^3/uL (150-400); Red Cell Distribution Width 13.8 % (11.6-14.8); White Blood Cell Count 3.1 X10^3/uL (4.5-11.0)
[2024-08-06 15:27] LABS: Alanine Aminotransferase 31 IU/L (<35); Albumin 4.1 g/dL (3.5-5.0); Albumin Globulin Ratio 2.1 (1.0-2.8); Alkaline Phosphatase 85 U/L (38-126); Aspartate Aminotransferase 25 IU/L (14-36); BUN Creatinine Ratio 19.1 (6-22); Bilirubin Total 0.7 mg/dL (0.2-1.3); Blood Urea Nitrogen 17 mg/dL (7-17); Calcium 9.6 mg/dL (8.4-10.2); Carbon Dioxide 25 mmol/L (22-32); Chloride 106 mmol/L (98-107); Estimated Glomerular Filt Rate > 60 mL/min (>60); Glucose 87 mg/dL (70-100); HEMOLYSIS < 15 (0-50); Potassium 4.5 mmol/L (3.4-5.1); Sodium 139 mmol/L (137-145); Total Protein 6.1 g/dL (6.3-8.2)
[2024-08-08 08:09] LABS: CA 15-3 23.3 U/mL (0.0-25.0)
[2024-08-09 07:10] LABS: Cancer Antigen 27.29 26.2 U/mL (0.0-38.6)
== END ==
LOC: LAB 13:53
PROVIDERS: Referring Provider Internal Medicine; Visit Provider Internal Medicine
DX: C50.411 Malignant neoplasm of upper-outer quadrant of right female breast (principal)
CPT/HCPCS: 36415; 80053; 85025; 86300

== ENCOUNTER 2024-08-08 12:36 | Emergency (ER) | payer BC, SELFPAY ==
[2021-06-26 12:18] VITALS: BMI 27.1
[2024-08-08 12:40] VITALS: BP 164/94; PULSE 112; RESP 18; TEMP 36.9; O2SAT 100; BMI 25.8
--- NOTE | 2024-08-08 12:46 | DI.US.S_ITS ---
PROCEDURE: US PERIPH VENOUS LOW EXTREM LT INDICATIONS: Left foot sent for US from oncologist, evaluate for bloodclot TECHNIQUE: Real-time imaging, as well as color and pulse Doppler interrogation, were performed of the lower extremity deep veins from the inguinal ligament to the popliteal fossa, with documentation of the visualized calf veins. COMPARISON: None. FINDINGS: The common femoral, femoral, popliteal, and the visualized calf veins are normally compressible, and free of intraluminal thrombus. Color and pulse Doppler demonstrate normal phasic intraluminal flow. There is normal augmentation response to distal compression maneuver. Within the plantar midfoot, there is a simple appearing cyst within the subcutaneous fat measuring 3 x 3 x 4 mm. No abnormal vascularity can be seen. IMPRESSION: No findings of lower extremity deep venous thrombosis. Within the plantar midfoot, there is a 4 mm simple cyst seen. Dictated by: Tristin Larson M.D. on 08/08/2024 at 13:11 Approved by: Tristin Larson M.D. on 08/08/2024 at 13:12
--- NOTE | 2024-08-08 14:26 | ED.EXTPRO ---
HPI - Extremity Problem General Chief complaint: Extremity Problem,Nontraumatic Stated complaint: poss thrombosis on bottom of foot Time Seen by Provider: 08/08/24 13:43 Source: patient Mode of arrival: Ambulatory History of Present Illness HPI Narrative: Ms. 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 Patient reports about 10 days ago she noticed sharp severe pain when she stepped on her left foot, there was no trauma. She notices a dark small spot in the middle of the bottom of her foot directly where the pain is. This area is purple and swollen. It hurts when she walks directly on it. There is no pain when she has not bearing any weight on it. No fevers, chills, upper leg swelling or redness. She has been having to walk on the sides of her feet to prevent pain. Related Data Previous Rx's Medication Instructions Recorded estradiol 0.05 mg/24 hr semiweekly 1 patch topical 2XW #24 patches 06/09/23 transdermal patch diazepam 5 mg tablet (Valium) 5 mg PO ONCE PRN MRI anxiety #1 tab 07/06/24 Allergies Allergy/AdvReac Type Severity Reaction Status Date / Time No Known Drug Allergies Allergy Verified 06/30/24 14:57 Review of Systems Review of Systems ROS Unobtainable: All systems reviewed & are unremarkable except as noted in HPI and below Patient History Medical History History of Mohs micrographic surgery for skin cancer (02/12/21) Malaria (~1984) Chicken pox (~1992) Phlebitis Prolapsed uterus Amniotic fluid embolism (~12/22/98) Screening for breast cancer Screening for malignant neoplasm of colon Adult general medical exam Anemia, unspecified Surgical History Anesthesia History of dilatation and curettage (~1998) History of varicose vein ligation (~2006) History of appendectomy (~1984) History of tonsillectomy (~1974) Family History Mother Pancreatic cancer Grandfather No problems noted. Grandmother COPD (chronic obstructive pulmonary disease) Grandfather Cirrhosis Grandmother History of heart disease Social History household members: family Smoking Status: Never smoker alcohol intake: current Smoking Status: Never smoker alcohol intake frequency: holidays/special occasions only Exam Narrative Exam Narrative: GENERAL: 59 year old patient appears stated age. Well-developed patient, in no acute distress. HEAD: Atraumatic. Normocephalic. NECK: Trachea midline. Cervical ROM intact. CARDIOVASCULAR: Regular rate RESPIRATORY: ?Nonlabored respirations. ?Speaking in clear, full sentences. EXTREMITIES: On the plantar aspect of the left foot, in the middle region, there is approximately 1 cm round area dark discoloration and palpable fullness, no fluctuance. Tenderness to palpation. No streaking erythema or drainage. No tenderness to palpation to the remainder of the foot and there are palpable DP and PT pulses bilaterally brisk capillary refill in the toes. NEURO: AOx3. ?Clear speech. ?Moves all 4 extremities appropriately. Sensation intact to light touch in the plantar and dorsal aspect of the feet. Initial Vital Signs Initial Vital Signs: Vital Signs Temperature 98.4 F 08/08/24 12:40 Pulse Rate 112 H 08/08/24 12:40 Respiratory Rate 18 08/08/24 12:40 Blood Pressure 164/94 H 08/08/24 12:40 Pulse Oximetry 100 08/08/24 12:40 Oxygen Delivery Method Room Air 08/08/24 12:40 Course Orders Ordered: ED Orders 08/08/24 12:46 US periph venous low extrem lt Stat 08/08/24 14:40 XR foot LT min 3V Stat Vital Signs Vital signs: Vital Signs - 8 hr 08/08/24 12:40 08/08/24 16:18 Temperature 98.4 F Pulse Rate 112 H 76 Respiratory Rate 18 18 Blood Pressure 164/94 H 150/65 H Pulse Oximetry 100 100 Oxygen Delivery Method Room Air Room Air MDM - Extremity (Nontraumatic) Medical Records Attestation: I reviewed the patient's medical records. Medical records narrative: 06/30/[address] Ramsey Imaging Data Left Foot X-Ray: Radiologist's Impression: PROCEDURE: XR FOOT LT MIN 3V INDICATIONS: severe plantar L foot pain with walking TECHNIQUE: 3 views of the foot were acquired. COMPARISON: None. FINDINGS: Bones: No fractures or dislocations. No suspicious bony lesions. Incidental note is made of an accessory ossicle, an os tibiale externum. Soft tissues: Apparent calcification can be seen within the plantar aspect of the heel, measuring 4 mm No tibiotalar joint effusion. Achilles tendon appears normal. The plantar aspect of the foot demonstrates no significant abnormality. IMPRESSION: 4 mm focus of apparent plantar calcification overlying the heel. Please correlate with physical examination findings and known patient history. 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 Differential diagnosis includes but isn't limited to cyst, wart, bone spur, plantar fasciitis, etc. On exam the patient is in no acute distress, nontoxic appearing, heart rate and blood pressure mildly elevated in triage. Patient has a small well-circumscribed area of tenderness, discoloration, swelling on the plantar aspect of her left foot that feels like a small cyst. No signs of infection. Vascular ultrasound ordered as advised by her oncologist for concern of potential clot, x-ray foot will also be obtained to rule out bone spur or bony abnormality. 4:15pm pt requesting discharge, US not back yet. Wet read is negative for DVT. Reveals possible small simple cyst 3 x 4 x 3 mm on the left plantar midfoot where the patient's pain is. Foot x-ray reveals 4 mm focus of apparent plantar calcification overlying the heel. However this is not where the patient's pain is. Otherwise no fractures or dislocations. Recommended follow up with Podiatry, corn cover for small cyst-like spot, ED return precautions discussed. She is stable for discharge home, declines the need for crutches. Ultrasound read returned finding no findings of lower extremity deep venous thrombosis. Within the plantar midfoot, there is a 4 mm simple cyst seen. There were issues with having this report uploaded however it was printed and provided to me. 6:44pm called patient and informe dhe rof results. Discharge Plan Departure Patient Disposition: Home Clinical Impression: Cyst, Acute pain of left foot Instructions: DI for Acute Cystitis Activity Restrictions/Additional Instructions: Dear Monica, Thank you for coming to the emergency department. Today you were evaluated for left foot pain. We did not have the final results of your left leg ultrasound back at this time but it appears to be a cyst in the bottom of your left foot. X-ray does not reveal any fractures. Please call to schedule an appointment with a chief information officer for follow up. You can call [facility] to schedule an appointment with Dr. Larios or you can also call [facility] here in town. In the meantime, please purchase corn covers to go around the small cyst to prevent putting pressure on it. You may also use crutches to avoid putting pressure on the foot. Please follow up with your primary care doctor within the next 2-3 days for ER follow-up. (If you do not have a PCP you can call [phone]. ?to schedule an appointment with an [facility] Primary Care Provider) IF YOU DEVELOP ANY NEW OR WORSENING SYMPTOMS, RETURN TO THE ER! Please read the attached instructions, they highlight more specific treatments and interventions for you at home. Thank you for letting me participate in your care, Loretta Knott PA-C Prescriptions: No Action estradiol 0.05 mg/24 hr patch semiweekly 1 patch topical 2XW Qty: 24 3RF diazepam [Valium] 5 mg tablet 5 mg PO ONCE PRN (Reason: MRI anxiety) Qty: 1 0RF Referrals: Miscellaneous,Doctor, MD [Primary Care Provider] - Stand Alone Forms: Patient Portal/API/Survey
--- NOTE | 2024-08-08 14:27 | PC.NURSE ---
Pt reports stepping and moving funny while wearing her tennis shoes. Now has small red bump on bottom of left foot. Pain worse with palpation and weight bearing. She has hx of phlebitis in some of her veins on both of her legs. Concerned for clot and especially worried because she is to start a new medication for cancer tomorrow that states to watch for clots. Cap refill in her left toes is about 3-4 seconds with some purple discoloration on the pad of her foot. States her feet are normally discolored a bit.
--- NOTE | 2024-08-08 14:40 | DI.RAD.S_ITS ---
PROCEDURE: XR FOOT LT MIN 3V INDICATIONS: severe plantar L foot pain with walking TECHNIQUE: 3 views of the foot were acquired. COMPARISON: None. FINDINGS: Bones: No fractures or dislocations. No suspicious bony lesions. Incidental note is made of an accessory ossicle, an os tibiale externum. Soft tissues: Apparent calcification can be seen within the plantar aspect of the heel, measuring 4 mm No tibiotalar joint effusion. Achilles tendon appears normal. The plantar aspect of the foot demonstrates no significant abnormality. IMPRESSION: 4 mm focus of apparent plantar calcification overlying the heel. Please correlate with physical examination findings and known patient history. Dictated by: Tristin Larson M.D. on 08/08/2024 at 14:23 Approved by: Tristin Larson M.D. on 08/08/2024 at 14:24
[2024-08-08 16:18] VITALS: BP 150/65; PULSE 76; RESP 18; O2SAT 100
== END 2024-08-08 16:18 | disposition home or self-care (01) ==
PROVIDERS: Emergency Provider Physician Assistant
DX: L72.9 Follicular cyst of the skin and subcutaneous tissue, unspecified (principal); M79.672 Pain in left foot
CPT/HCPCS: 73630; 93971; 99281; 99283

== ENCOUNTER → 2024-09-07 15:21 | Outpatient (CLI) | payer BC, SELFPAY ==
[2021-06-26 12:18] VITALS: BMI 27.1
[2024-09-07 16:17] LABS: Hematocrit 35.1 % (36-46); Hemoglobin 11.9 g/dL (12.0-16.0); Mean Corpuscular Hemoglobin 29.7 PG (26-34); Mean Corpuscular Volume 87.3 fL (80-100); Platelet Count 123 X10^3/uL (150-400); Red Blood Cell Count 4.01 X10^6/uL (4.0-5.2); Red Cell Distribution Width 15.3 % (11.6-14.8)
[2024-09-07 16:22] LABS: Add Manual Diff / Slide Review YES; White Blood Cell Count 1.7 X10^3/uL (4.5-11.0)
[2024-09-07 16:26] LABS: Alanine Aminotransferase 97 IU/L (<35); Alkaline Phosphatase 101 U/L (38-126); Aspartate Aminotransferase 50 IU/L (14-36); BUN Creatinine Ratio 17.1 (6-22); Bilirubin Total 0.6 mg/dL (0.2-1.3); Blood Urea Nitrogen 18 mg/dL (7-17); Calcium 9.4 mg/dL (8.4-10.2); Carbon Dioxide 24 mmol/L (22-32); Chloride 109 mmol/L (98-107); Estimated Glomerular Filt Rate > 60 mL/min (>60); Glucose 72 mg/dL (70-99); HEMOLYSIS < 15 (0-50); Potassium 4.4 mmol/L (3.4-5.1); Sodium 139 mmol/L (137-145)
[2024-09-07 16:35] LABS: Neutrophils Absolute Manual 884 /uL (3000-5900); RBC Morphology Normal Morphology; Total Cells Counted 100
[2024-09-07 16:59] LABS: Cancer Antigen 125 11.6 U/mL (0-35)
== END ==
PROVIDERS: Referring Provider Internal Medicine; Visit Provider Radiology Therapeutic Radiology
DX: C50.111 Malignant neoplasm of central portion of right female breast (principal)
CPT/HCPCS: 36415; 80053; 85007; 85025; 86304

== ENCOUNTER → 2024-09-15 09:43 | Outpatient (CLI) | payer BC, SELFPAY ==
[2021-06-26 12:18] VITALS: BMI 27.1
[2024-09-15 10:20] LABS: Hematocrit 35.2 % (36-46); Hemoglobin 12.1 g/dL (12.0-16.0); Mean Corpuscular HGB Conc 34.5 % (30-36); Mean Corpuscular Hemoglobin 30.3 PG (26-34); Mean Corpuscular Volume 87.8 fL (80-100); Platelet Count 154 X10^3/uL (150-400); Red Blood Cell Count 4.01 X10^6/uL (4.0-5.2); Red Cell Distribution Width 16.6 % (11.6-14.8)
[2024-09-15 10:22] LABS: Add Manual Diff / Slide Review YES
[2024-09-15 10:45] LABS: Alanine Aminotransferase 76 IU/L (<35); Albumin 4.1 g/dL (3.5-5.0); Albumin Globulin Ratio 1.9 (1.0-2.8); Alkaline Phosphatase 120 U/L (38-126); Aspartate Aminotransferase 51 IU/L (14-36); BUN Creatinine Ratio 14.6 (6-22); Bilirubin Total 0.7 mg/dL (0.2-1.3); Blood Urea Nitrogen 15 mg/dL (7-17); Calcium 9.7 mg/dL (8.4-10.2); Carbon Dioxide 23 mmol/L (22-32); Chloride 110 mmol/L (98-107); Estimated Glomerular Filt Rate > 60 mL/min (>60); Globulin 2.2 g/dL (1.7-4.1); Glucose 93 mg/dL (70-99); HEMOLYSIS < 15 (0-50); Potassium 4.3 mmol/L (3.4-5.1); Sodium 140 mmol/L (137-145); Total Protein 6.3 g/dL (6.3-8.2)
[2024-09-15 11:04] LABS: Neutrophils Absolute Manual 969 /uL (3000-5900); Total Cells Counted 100
[2024-09-15 11:05] LABS: Anisocytosis 1+
[2024-09-15 11:10] LABS: White Blood Cell Count 1.7 X10^3/uL (4.5-11.0)
[2024-09-15 11:11] LABS: Cancer Antigen 125 11.3 U/mL (0-35)
== END ==
PROVIDERS: Referring Provider General Practice; Visit Provider Radiology Therapeutic Radiology
DX: C50.111 Malignant neoplasm of central portion of right female breast (principal)
CPT/HCPCS: 36415; 80053; 85007; 85025; 86304

== ENCOUNTER → 2024-09-22 10:08 | Outpatient (CLI) | payer BC, SELFPAY ==
[2021-06-26 12:18] VITALS: BMI 27.1
[2024-09-22 11:37] LABS: Add Manual Diff / Slide Review NO; Basophils Absolute Auto 0 /uL (0-100); Basophils Percent Auto 1.6 % (0-2); Eosinophils Absolute Auto 100 /uL (0-450); Eosinophils Percent Auto 3.9 % (2-4); Hemoglobin 11.6 g/dL (12.0-16.0); Lymphocytes Absolute Auto 500 /uL (1100-4500); Lymphocytes Percent Auto 23.8 % (25-40); Mean Corpuscular HGB Conc 35.3 % (30-36); Mean Corpuscular Hemoglobin 31.1 PG (26-34); Monocytes Absolute Auto 200 /uL (0-900); Monocytes Percent Auto 10.6 % (3-14); Neutrophils Absolute Auto 1300 /uL (1500-7000); Neutrophils Percent Auto 60.1 % (50-75); Platelet Count 152 X10^3/uL (150-400); Red Blood Cell Count 3.74 X10^6/uL (4.0-5.2); Red Cell Distribution Width 18.5 % (11.6-14.8); White Blood Cell Count 2.2 X10^3/uL (4.5-11.0)
[2024-09-22 11:58] LABS: Alanine Aminotransferase 58 IU/L (<35); Albumin Globulin Ratio 1.7 (1.0-2.8); Alkaline Phosphatase 89 U/L (38-126); Aspartate Aminotransferase 41 IU/L (14-36); BUN Creatinine Ratio 19.8 (6-22); Bilirubin Total 0.8 mg/dL (0.2-1.3); Blood Urea Nitrogen 20 mg/dL (7-17); Calcium 9.7 mg/dL (8.4-10.2); Carbon Dioxide 24 mmol/L (22-32); Chloride 109 mmol/L (98-107); Estimated Glomerular Filt Rate > 60 mL/min (>60); Globulin 2.4 g/dL (1.7-4.1); Glucose 77 mg/dL (70-99); HEMOLYSIS < 15 (0-50); Potassium 4.2 mmol/L (3.4-5.1); Sodium 139 mmol/L (137-145); Total Protein 6.4 g/dL (6.3-8.2)
== END ==
PROVIDERS: Referring Provider Internal Medicine; Visit Provider Internal Medicine
DX: C50.911 Malignant neoplasm of unspecified site of right female breast (principal)
CPT/HCPCS: 36415; 80053; 85025; 86300

== ENCOUNTER → 2024-09-29 10:00 | Outpatient (CLI) | payer BC, SELFPAY ==
[2021-06-26 12:18] VITALS: BMI 27.1
[2024-09-29 10:31] LABS: Add Manual Diff / Slide Review NO; Basophils Absolute Auto 0 /uL (0-100); Basophils Percent Auto 1.4 % (0-2); Eosinophils Absolute Auto 200 /uL (0-450); Eosinophils Percent Auto 5.8 % (2-4); Hematocrit 36.1 % (36-46); Hemoglobin 12.4 g/dL (12.0-16.0); Lymphocytes Absolute Auto 600 /uL (1100-4500); Lymphocytes Percent Auto 22.7 % (25-40); Mean Corpuscular HGB Conc 34.2 % (30-36); Mean Corpuscular Hemoglobin 30.5 PG (26-34); Monocytes Absolute Auto 200 /uL (0-900); Monocytes Percent Auto 7.6 % (3-14); Neutrophils Absolute Auto 1600 /uL (1500-7000); Neutrophils Percent Auto 62.5 % (50-75); Platelet Count 197 X10^3/uL (150-400); Red Blood Cell Count 4.06 X10^6/uL (4.0-5.2); Red Cell Distribution Width 18.6 % (11.6-14.8); White Blood Cell Count 2.6 X10^3/uL (4.5-11.0)
[2024-09-29 10:56] LABS: Alanine Aminotransferase 43 IU/L (<35); Alkaline Phosphatase 95 U/L (38-126); Aspartate Aminotransferase 38 IU/L (14-36); BUN Creatinine Ratio 11.5 (6-22); Bilirubin Total 0.9 mg/dL (0.2-1.3); Blood Urea Nitrogen 11 mg/dL (7-17); Calcium 9.3 mg/dL (8.4-10.2); Carbon Dioxide 24 mmol/L (22-32); Chloride 108 mmol/L (98-107); Estimated Glomerular Filt Rate > 60 mL/min (>60); Glucose 86 mg/dL (70-99); HEMOLYSIS < 15 (0-50); Potassium 4.5 mmol/L (3.4-5.1); Sodium 140 mmol/L (137-145)
== END ==
PROVIDERS: Referring Provider Internal Medicine; Visit Provider Internal Medicine
DX: C50.911 Malignant neoplasm of unspecified site of right female breast (principal)
CPT/HCPCS: 36415; 80053; 85025; 86300

== ENCOUNTER → 2024-11-10 09:17 | Outpatient (CLI) | payer BC, SELFPAY ==
[2021-06-26 12:18] VITALS: BMI 27.1
[2024-11-10 10:22] LABS: Add Manual Diff / Slide Review NO; Hematocrit 34.6 % (36-46); Hemoglobin 11.9 g/dL (12.0-16.0); Lymphocytes Absolute Auto 500 /uL (1100-4500); Mean Corpuscular HGB Conc 34.3 % (30-36); Mean Corpuscular Hemoglobin 32.8 PG (26-34); Mean Corpuscular Volume 95.5 fL (80-100); Platelet Count 152 X10^3/uL (150-400)
[2024-11-10 10:31] LABS: Alanine Aminotransferase 30 IU/L (<35); Albumin 3.9 g/dL (3.5-5.0); Albumin Globulin Ratio 1.9 (1.0-2.8); Alkaline Phosphatase 76 U/L (38-126); Blood Urea Nitrogen 16 mg/dL (7-17); Calcium 9.4 mg/dL (8.4-10.2); Carbon Dioxide 25 mmol/L (22-32); Chloride 110 mmol/L (98-107); Estimated Glomerular Filt Rate 56 mL/min (>60); Globulin 2.1 g/dL (1.7-4.1); Glucose 96 mg/dL (70-99); HEMOLYSIS < 15 (0-50); Phosphorous 3.2 mg/dL (2.5-4.5); Potassium 4.2 mmol/L (3.4-5.1); Sodium 140 mmol/L (137-145); Total Protein 6.0 g/dL (6.3-8.2)
[2024-11-10 22:37] LABS: CA 15-3 69.2 U/mL (0.0-25.0)
== END ==
PROVIDERS: Referring Provider Internal Medicine; Visit Provider Internal Medicine
DX: C50.911 Malignant neoplasm of unspecified site of right female breast (principal)
CPT/HCPCS: 36415; 80053; 84100; 85025; 86300

== ENCOUNTER → 2024-12-08 09:03 | Outpatient (CLI) | payer BC, SELFPAY ==
[2021-06-26 12:18] VITALS: BMI 27.1
[2024-12-08 10:01] LABS: Add Manual Diff / Slide Review NO; Hematocrit 36.1 % (36-46); Hemoglobin 12.5 g/dL (12.0-16.0); Lymphocytes Absolute Auto 600 /uL (1100-4500); Mean Corpuscular HGB Conc 34.8 % (30-36); Mean Corpuscular Hemoglobin 32.8 PG (26-34); Mean Corpuscular Volume 94.4 fL (80-100); Platelet Count 140 X10^3/uL (150-400)
[2024-12-08 10:29] LABS: Alanine Aminotransferase 28 IU/L (<35); Albumin 4.0 g/dL (3.5-5.0); Albumin Globulin Ratio 1.8 (1.0-2.8); Alkaline Phosphatase 62 U/L (38-126); Blood Urea Nitrogen 16 mg/dL (7-17); Calcium 9.6 mg/dL (8.4-10.2); Carbon Dioxide 22 mmol/L (22-32); Chloride 110 mmol/L (98-107); Estimated Glomerular Filt Rate 56 mL/min (>60); Globulin 2.2 g/dL (1.7-4.1); Glucose 88 mg/dL (70-99); HEMOLYSIS < 15 (0-50); Potassium 4.3 mmol/L (3.4-5.1); Sodium 140 mmol/L (137-145); Total Protein 6.2 g/dL (6.3-8.2)
[2024-12-09 07:09] LABS: CA 15-3 76.8 U/mL (0.0-25.0)
== END ==
PROVIDERS: Referring Provider Internal Medicine; Visit Provider Internal Medicine
DX: C50.911 Malignant neoplasm of unspecified site of right female breast (principal)
CPT/HCPCS: 80053; 85025; 86300

== ENCOUNTER → 2025-01-26 09:33 | Outpatient (CLI) | payer BC, SELFPAY ==
[2021-06-26 12:18] VITALS: BMI 27.1
[2025-01-26 10:55] LABS: Add Manual Diff / Slide Review NO; Hematocrit 36.3 % (36-46); Hemoglobin 12.7 g/dL (12.0-16.0); Lymphocytes Absolute Auto 500 /uL (1100-4500); Mean Corpuscular HGB Conc 35.0 % (30-36); Mean Corpuscular Hemoglobin 32.6 PG (26-34); Mean Corpuscular Volume 93.1 fL (80-100); Platelet Count 161 X10^3/uL (150-400)
[2025-01-26 10:59] LABS: Alanine Aminotransferase 41 IU/L (<35); Albumin 4.1 g/dL (3.5-5.0); Albumin Globulin Ratio 1.9 (1.0-2.8); Alkaline Phosphatase 66 U/L (38-126); Blood Urea Nitrogen 19 mg/dL (7-17); Calcium 9.7 mg/dL (8.4-10.2); Carbon Dioxide 23 mmol/L (22-32); Chloride 109 mmol/L (98-107); Estimated Glomerular Filt Rate 58 mL/min (>60); Globulin 2.2 g/dL (1.7-4.1); Glucose 89 mg/dL (70-99); HEMOLYSIS < 15 (0-50); Magnesium 2.1 mg/dL (1.6-2.3); Phosphorous 3.9 mg/dL (2.5-4.5); Potassium 4.5 mmol/L (3.4-5.1); Sodium 139 mmol/L (137-145); Total Protein 6.3 g/dL (6.3-8.2)
[2025-01-26 11:22] LABS: TSH w/ Reflex to FT4 2.90 uIU/mL (0.47-4.68)
[2025-01-27 12:36] LABS: CA 15-3 78.7 U/mL (0.0-25.0)
[2025-01-29 15:11] LABS: ANA Screen, IFA Negative (.)
== END ==
PROVIDERS: Internal Medicine; PCP Family Medicine; Referring Provider Family Medicine; Visit Provider Family Medicine
DX: C50.411 Malignant neoplasm of upper-outer quadrant of right female breast (principal); Z82.69 Family history of other diseases of the musculoskeletal system and connective tissue; M25.50 Pain in unspecified joint; Z79.811 Long term (current) use of aromatase inhibitors; R23.9 Unspecified skin changes
CPT/HCPCS: 36415; 80053; 83735; 84100; 84443; 85025; 86038; 86300; 86430

== ENCOUNTER → 2025-02-21 07:57 | Outpatient (CLI) | payer BC, SELFPAY ==
[2021-06-26 12:18] VITALS: BMI 27.1
[2025-02-21 08:32] LABS: Add Manual Diff / Slide Review NO; Hematocrit 35.1 % (36-46); Hemoglobin 12.2 g/dL (12.0-16.0); Lymphocytes Absolute Auto 500 /uL (1100-4500); Mean Corpuscular HGB Conc 34.7 % (30-36); Mean Corpuscular Hemoglobin 32.7 PG (26-34); Mean Corpuscular Volume 94.2 fL (80-100); Platelet Count 153 X10^3/uL (150-400)
[2025-02-21 09:47] LABS: Alanine Aminotransferase 40 IU/L (<35); Albumin 4.0 g/dL (3.5-5.0); Albumin Globulin Ratio 1.7 (1.0-2.8); Alkaline Phosphatase 57 U/L (38-126); Blood Urea Nitrogen 15 mg/dL (7-17); Calcium 9.3 mg/dL (8.4-10.2); Carbon Dioxide 24 mmol/L (22-32); Chloride 110 mmol/L (98-107); Estimated Glomerular Filt Rate 58 mL/min (>60); Globulin 2.3 g/dL (1.7-4.1); Glucose 88 mg/dL (70-99); HEMOLYSIS < 15 (0-50); Magnesium 2.1 mg/dL (1.6-2.3); Phosphorous 3.5 mg/dL (2.5-4.5); Potassium 4.5 mmol/L (3.4-5.1); Sodium 141 mmol/L (137-145); Total Protein 6.3 g/dL (6.3-8.2)
== END ==
PROVIDERS: Family Provider Family Medicine; PCP Family Medicine; Referring Provider Family Medicine; Visit Provider Internal Medicine
DX: C50.411 Malignant neoplasm of upper-outer quadrant of right female breast (principal)
CPT/HCPCS: 36415; 80053; 83735; 84100; 85025; 86300

== ENCOUNTER → 2025-03-30 09:39 | Outpatient (CLI) | payer BC, SELFPAY ==
[2021-06-26 12:18] VITALS: BMI 27.1
[2025-03-30 10:32] LABS: Add Manual Diff / Slide Review NO; Hematocrit 34.9 % (36-46); Hemoglobin 12.1 g/dL (12.0-16.0); Lymphocytes Absolute Auto 600 /uL (1100-4500); Mean Corpuscular HGB Conc 34.6 % (30-36); Mean Corpuscular Hemoglobin 32.7 PG (26-34); Mean Corpuscular Volume 94.6 fL (80-100); Platelet Count 147 X10^3/uL (150-400)
[2025-03-30 10:48] LABS: Alanine Aminotransferase 36 IU/L (<35); Albumin 4.2 g/dL (3.5-5.0); Albumin Globulin Ratio 1.8 (1.0-2.8); Alkaline Phosphatase 56 U/L (38-126); Blood Urea Nitrogen 17 mg/dL (7-17); Calcium 9.5 mg/dL (8.4-10.2); Carbon Dioxide 25 mmol/L (22-32); Chloride 109 mmol/L (98-107); Estimated Glomerular Filt Rate 56 mL/min (>60); Globulin 2.3 g/dL (1.7-4.1); Glucose 90 mg/dL (70-99); HEMOLYSIS < 15 (0-50); Magnesium 2.3 mg/dL (1.6-2.3); Phosphorous 3.0 mg/dL (2.5-4.5); Potassium 4.2 mmol/L (3.4-5.1); Sodium 141 mmol/L (137-145); Total Protein 6.5 g/dL (6.3-8.2)
== END ==
PROVIDERS: PCP Family Medicine; Referring Provider Internal Medicine; Visit Provider Internal Medicine
DX: C50.411 Malignant neoplasm of upper-outer quadrant of right female breast (principal)
CPT/HCPCS: 36415; 80053; 83735; 84100; 85025; 86300

== ENCOUNTER → 2025-04-27 10:33 | Outpatient (CLI) | payer BC, SELFPAY ==
[2021-06-26 12:18] VITALS: BMI 27.1
[2025-04-27 12:05] LABS: Add Manual Diff / Slide Review NO; Hematocrit 36.5 % (36-46); Hemoglobin 12.6 g/dL (12.0-16.0); Lymphocytes Absolute Auto 500 /uL (1100-4500); Mean Corpuscular HGB Conc 34.5 % (30-36); Mean Corpuscular Hemoglobin 32.5 PG (26-34); Mean Corpuscular Volume 94.0 fL (80-100); Platelet Count 147 X10^3/uL (150-400)
[2025-04-27 12:34] LABS: Alanine Aminotransferase 56 IU/L (<35); Albumin 4.3 g/dL (3.5-5.0); Albumin Globulin Ratio 2.0 (1.0-2.8); Alkaline Phosphatase 62 U/L (38-126); Blood Urea Nitrogen 17 mg/dL (7-17); Calcium 9.7 mg/dL (8.4-10.2); Carbon Dioxide 23 mmol/L (22-32); Chloride 108 mmol/L (98-107); Estimated Glomerular Filt Rate > 60 mL/min (>60); Globulin 2.2 g/dL (1.7-4.1); Glucose 95 mg/dL (70-99); HEMOLYSIS < 15 (0-50); Magnesium 2.0 mg/dL (1.6-2.3); Phosphorous 3.5 mg/dL (2.5-4.5); Potassium 4.1 mmol/L (3.4-5.1); Sodium 139 mmol/L (137-145); Total Protein 6.5 g/dL (6.3-8.2)
[2025-04-28 08:36] LABS: CA 15-3 59.7 U/mL (0.0-25.0)
== END ==
PROVIDERS: PCP Family Medicine; Referring Provider Internal Medicine; Visit Provider Internal Medicine
DX: C50.411 Malignant neoplasm of upper-outer quadrant of right female breast (principal)
CPT/HCPCS: 36415; 80053; 83735; 84100; 85025; 86300